=== PATIENT | female | born 1970 | race Caucasian/White ===

== ENCOUNTER 2024-01-06 15:02 | Emergency (ER) | payer OTHER ==
--- NOTE | 2024-01-06 15:13 | ED ---
URI HPI - General Source: patient, RN notes reviewed Mode of arrival: ambulatory Limitations: no limitations <Jessica Fields - Last Filed: 01/06/24 15:16> <Vijaya Avila - Last Filed: 01/12/24 00:43> - General Chief Complaint: Upper Respiratory Infection Stated Complaint: cough,headache Time Seen by Provider: 01/06/24 15:12 - History of Present Illness Initial Comments: Quick Note: This is a 53-year-old female who presents to the emergency department for coughing, congestion, and headaches. Symptoms started about a week ago. The cough is described as productive. Reports minor shortness of breath, but states that her oxygen has been stable. She is around other sick individuals at [place], where she is at for alcohol abuse. Denies any chest pain. (Jessica Fields) 53-year-old female presents emergency department reporting cough, congestion and headaches. States that symptoms have been going on for the past week. She is at [place]. Does have sick contacts. States that she is getting Motrin and Tylenol for her symptoms. States that she has a nonproductive cough. No underlying lung issues to include asthma or COPD. Denies any chest pain. No urinary complaints. No other alleviating, precipitating or modifying factors (Vijaya Avila) - Related Data Previous Rx's Medication Instructions Recorded Benzonatate [Tessalon Perles] 100 mg PO TID PRN #30 capsule 01/06/24 cloNIDine HCL 0.1 mg PO BID PRN #30 tab 01/06/24 guaiFENesin [Mucinex] 1,200 mg PO BID PRN #30 tab 01/06/24 lisinopriL [Prinivil] 10 mg PO DAILY #30 tab 01/06/24 Allergies Allergy/AdvReac Type Severity Reaction Status Date / Time Penicillins Allergy Unknown Verified 01/06/24 15:15 Review of Systems ROS Other: All systems not noted in ROS Statement are negative. <Jessica Fields - Last Filed: 01/06/24 15:16> ROS Other: All systems not noted in ROS Statement are negative. <Vijaya Avila - Last Filed: 01/12/24 00:43> ROS Statement: Those systems with pertinent positive or pertinent negative responses have been documented in the HPI. General Exam <Jessica Fields - Last Filed: 01/06/24 15:16> General appearance: alert, in no apparent distress Head exam: Present: atraumatic, normocephalic, normal inspection Eye exam: Present: normal appearance, PERRL, EOMI. Absent: scleral icterus, conjunctival injection, periorbital swelling ENT exam: Present: normal exam, mucous membranes moist Neck exam: Present: normal inspection. Absent: tenderness, meningismus, lymphadenopathy Respiratory exam: Present: normal lung sounds bilaterally. Absent: respiratory distress, wheezes, rales, rhonchi, stridor Cardiovascular Exam: Present: regular rate, normal rhythm, normal heart sounds. Absent: systolic murmur, diastolic murmur, rubs, gallop, clicks GI/Abdominal exam: Present: soft, normal bowel sounds. Absent: distended, tend erness, guarding, rebound, rigid Extremities exam: Present: normal inspection, full ROM, normal capillary refill. Absent: tenderness, pedal edema, joint swelling, calf tenderness Back exam: Present: normal inspection Neurological exam: Present: alert, oriented X3, CN II-XII intact Psychiatric exam: Present: normal affect, normal mood Skin exam: Present: warm, dry, intact, normal color. Absent: rash <Vijaya Avila - Last Filed: 01/12/24 00:43> - General Exam Comments Initial Comments: Visual Physical Exam Vital signs reviewed General: Well-appearing, nontoxic, no acute distress. Head: Normocephalic, atraumatic Eyes: PERRLA, EOMI ENT: Airway patent Chest: Nonlabored breathing Skin: No visual rash, normal skin tone Neuro: Alert and oriented 3 Musculoskeletal: No gross abnormalities (Jessica Fields) Course Vital Signs 01/06/24 01/06/24 15:10 17:14 Temperature 99.7 F H 98.2 F Pulse Rate 84 78 Respiratory 18 20 Rate Blood Pressure 167/99 137/89 O2 Sat by Pulse 98 96 Oximetry Medical Decision Making <Jessica Fields - Last Filed: 01/06/24 15:16> <Vijaya Avila - Last Filed: 01/12/24 00:43> - Medical Decision Making I performed the QuickNote portion of this chart. Signed Jessica Fields PA-C. (Jessica Fields) Was pt. sent in by a medical professional or institution ([facility], [employer]ICE [employer]ATION [employer], urgent care, hospital, or care home...) When possible be specific @ -[place] Did you speak to anyone other than the patient for history (EMS, parent, family, police, friend...)? What history was obtained from this source @ -No Did you review nursing and triage notes (agree or disagree)? Why? @ -I reviewed and agree with nursing and triage notes Were old charts reviewed (outside hosp., previous admission, EMS record, old EKG, old radiological studies, urgent care reports/EKG's, care home records)? Report findings @ -No old charts were reviewed Differential Diagnosis (chest pain, altered mental status, abdominal pain women, abdominal pain men, vaginal bleeding, weakness, fever, dyspnea, syncope, heada raghu, dizziness, GI bleed, back pain, seizure, CVA, palpatations, mental health, musculoskeletal)? @ -Differential Fever: Pneumonia, viral URI, endocarditis, myocarditis, pericarditis, otitis, sinusi tis, peritonsillar Abscess, retropharyngeal Abscess, epiglottitis, peritonitis, appendicitis, Yun cystitis, diverticulitis, hepatitis, colitis, UTI, PID, TOA, pyelonephritis, prostatitis, epididymitis, meningitis, encephalitis, pulmonary embolism, CVA, thyroid storm, pancreatitis, adrenal crisis, cavernous sinus thrombosis, this is not meant to be an all-inclusive list. EKG interpreted by me (3pts min.). @ -Not done X-rays interpreted by me (1pt min.). @ -Yes and demonstrates no pneumonia CT interpreted by me (1pt min.). @ -None done U/S interpreted by me (1pt. min.). @ -None done What testing was considered but not performed or refused? (CT, X-rays, U/S, labs)? Why? @ -None What meds were considered but not given or refused? Why? @ -Codeine cough syrup however patient is at [place] and therefore cannot have any medications that have codeine prescribed to her Did you discuss the management of the patient with other professionals (professionals i.e. [facility], [employer]ICE [employer]ATION [employer], lab, RT, psych nurse, healthcare social worker, motor coach chauffeur, teacher, forest fire management officer, manager of case)? Give summary @ -No Was smoking cessation discussed for >3mins.? @ -No Was critical care preformed (if so, how long)? @ -No Were there social determinants of health that impacted care today? How? (Homelessness, low income, unemployed, alcoholism, drug addiction, transportation, low edu. Level, literacy, decrease access to med. care, residential, rehab)? @Patient is in rehab Was there de-escalation of care discussed even if they declined (Discuss DNR or withdrawal of care, Hospice)? DNR status @ -No What co-morbidities impacted this encounter? (DM, HTN, Smoking, COPD, CAD, Cancer, CVA, ARF, Chemo, Hep., AIDS, mental health diagnosis, sleep apnea, morbid obesity)? @ -None Was patient admitted / discharged? Hospital course, mention meds given and route, prescriptions, significant lab abnormalities, going to OR and other pertinent info. @ -Upon arrival patient seen and evaluated in room 30. Thorough history and physical exam was performed. Patient is swabbed for influenza, COVID and RSV. Chest x-ray was performed. Patient is influenza A positive. She was given a dose of cough syrup in the emergency department. She will be discharged home on Tessalon Perles. She is outside the window for Tamiflu. Patient will be prescribed Mucinex. Instructed to take the medications as directed. Follow-up with her doctor and return for any new or worsening symptoms Undiagnosed new problem with uncertain prognosis? @ -No Drug Therapy requiring intensive monitoring for toxicity (Heparin, Nitro, Insulin, Cardizem)? @ -No Were any procedures done? @ -No Diagnosis/symptom? @ -Acute cough, influenza A Acute, or Chronic, or Acute on Chronic? @ -Acute Uncomplicated (without systemic symptoms) or Complicated (systemic symptoms)? @ -Complicated Side effects of treatment? @ -No Exacerbation, Progression, or Severe Exacerbation? @ -No Poses a threat to life or bodily function? How? (Chest pain, USA, SC, pneumonia, PE, COPD, DKA, ARF, appy, cholecystitis, CVA, Diverticulitis, Homicidal, Suicidal, threat to staff... and all critical care pts) @ -No (Vijaya Avila) - Lab Data Lab Results 01/06/24 01/06/24 Range/Units 15:17 17:41 Urine Color Colorless Urine Appearance Clear (Clear) Urine pH 7.0 (5.0-8.0) Ur Specific [place] 1.003 (1.001-1.035) Urine Protein Negative (Negative) Urine Glucose (UA) Negative (Negative) Urine Ketones Negative (Negative) Urine Blood Negative (Negative) Urine Nitrite Negative (Negative) Urine Bilirubin Negative (Negative) Urine Urobilinogen <2.0 (<2.0) mg/dL Ur Leukocyte Esterase Negative (Negative) Influenza Type A (PCR) Detected A (Not Detectd) Influenza Type B (PCR) Not Detected (Not Detectd) RSV (PCR) Not Detected (Not Detectd) SARS-CoV-2 (PCR) Not Detected (Not Detectd) Disposition <Jessica Fields - Last Filed: 01/06/24 15:16> Is patient prescribed a controlled substance at d/c from ED?: No Time of Disposition: 17:37 <Vijaya Avila - Last Filed: 01/12/24 00:43> Clinical Impression: Influenza, Cough Disposition: HOME SELF-CARE Condition: Stable Instructions (If sedation given, give patient instructions): Influenza (ED) Additional Instructions: Please use the Tessalon Perles as directed. Use the inhaler every 4 hours. Follow-up with your doctor and return for any new or worsening symptoms Prescriptions: cloNIDine HCL 0.1 mg PO BID PRN #30 tab PRN Reason: Hypertension guaiFENesin [Mucinex] 1,200 mg PO BID PRN #30 tab PRN Reason: Congestion lisinopriL [Prinivil] 10 mg PO DAILY #30 tab Benzonatate [Tessalon Perles] 100 mg PO TID PRN #30 capsule PRN Reason: Cough Referrals: None,Stated [Primary Care Provider] - 1-2 days
--- NOTE | 2024-01-06 16:00 | XR ---
EXAMINATION TYPE: XR chest 2V DATE OF EXAM: 01/06/2024 COMPARISON: None HISTORY: 53-year-old female with cough, headache, congestion TECHNIQUE: PA and lateral views FINDINGS: The heart is normal size. Aorta and pulmonary vasculature within normal limits. No consolidation or p leural effusion. IMPRESSION: No acute cardiopulmonary process.
[2024-01-06] MEDS: guaiFENesin-Coden 100-10MG/5ML 10 ML CUP PO STA (17:47)
[2024-01-06 18:03] VITALS: BP 137/89; PULSE 78; RESP 20; TEMP 98.2
[2024-01-06 18:21] LABS: Appearance,Urine Clear (Clear); Bilirubin,Urine Negative (Negative); Blood,Urine Negative (Negative); Color,Urine Colorless; Glucose,Urine (UA) Negative (Negative); Ketones,Urine Negative (Negative); Leukocyte Esterase,Urine Negative (Negative); Nitrite,Urine Negative (Negative); Protein,Urine Negative (Negative); Specific Gravity,Urine 1.003 (1.001-1.035); Urobilinogen,Urine <2.0 mg/dL (<2.0)
== END 2024-01-06 18:15 | disposition home or self-care (01) ==
LOC: EC 15:02
DX: J10.1 Influenza due to other identified influenza virus with other respiratory manifestations (principal); Z88.0 Allergy status to penicillin; Z20.822 Contact with and (suspected) exposure to COVID-19
CPT/HCPCS: 71046; 81003; 87636; 99284